=== PATIENT | male | born 1990 | race African-American/Black ===

== ENCOUNTER 2020-07-26 19:27 | Emergency (ER) | payer SELFPAY ==
[~2020-07-26] VITALS: Ht 157.5 cm; Wt 105.1 kg
--- NOTE | 2020-07-26 19:49 | NUR ---
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
--- NOTE | 2020-07-26 20:58 | NUR ---
pt to room from lobby
[2020-07-26 21:23] VITALS: BP 122/76
--- NOTE | 2020-07-26 21:23 | NUR ---
pt a&ox4, sitting up in stretcher, complain of respiratory discomfort. good breath sounds and aeration. mask on. MD jose paniagua pt. meds ordered.
[2020-07-26] MEDS ORDERED: AZITHROMYCIN 500 MG TABLET ONE (21:26)
[2020-07-26] MEDS ORDERED: KETOROLAC 30 MG/1 ML ONE (21:26)
[2020-07-26] MEDS ORDERED: ONDANSETRON ODT 4 MG ONE (21:26)
[2020-07-26] MEDS ORDERED: KETOROLAC 30 MG/1 ML IM ONE (21:30)
[2020-07-26] MEDS ORDERED: ONDANSETRON ODT 4 MG PO ONE (21:30)
[2020-07-26] MEDS ORDERED: AZITHROMYCIN 500 MG TABLET PO ONE (21:30)
--- NOTE | 2020-07-26 21:38 | NUR ---
pt given dc instructions and prescription and understood. ambulatory and dc'd
== END 2020-07-26 21:58 | disposition home or self-care (01) ==
LOC: ED 21:00
DX: J18.1 Lobar pneumonia, unspecified organism (principal); Z20.828 Contact with and (suspected) exposure to other viral communicable diseases; R11.0 Nausea; R07.89 Other chest pain; R00.0 Tachycardia, unspecified
CPT/HCPCS: 71045; 87635; 93005; 96372; 99285; J1885; Q0162